=== PATIENT | female | born 1950 | race Caucasian/White ===

== ENCOUNTER 2020-01-29 11:17 | Outpatient (CLI) | payer MEDICARE, SELFPAY ==
--- NOTE | 2020-01-29 11:20 | MM_ITS ---
WS: [id number] Bilateral screening digital mammogram, 01/29/2020 Clinical Data: SCREENING Comparison: 12/17/2018, 12/31/2010, 10/14/2009, 09/19/2008, 07/04/2007. Findings: The breast parenchymal pattern shows heterogeneous density No spiculated masses or clustered calcific ations are seen. There are no secondary signs of carcinoma. MM/[id number] Impression: 1. Negative bilateral mammogram unchanged. 2. Recommend annual screening mammograms. BIRADS: 1-Negative FOLLOW UP: 1 Year Follow-up The CAD radio program checker was used.
== END 2020-01-29 11:18 | disposition home or self-care (01) ==
LOC: RADSHAW 11:17
PROVIDERS: Family Provider Family Medicine; PCP Family Medicine; Visit Provider Family Medicine
DX: Z12.31 Encounter for screening mammogram for malignant neoplasm of breast (principal)
CPT/HCPCS: 77067

== ENCOUNTER 2020-11-23 10:56 | Emergency (ER) | payer MEDICARE, SELFPAY ==
[2020-11-23 10:58] VITALS: BP 120/68; PULSE 76; RESP 16; TEMP 36.4; O2SAT 98; BMI 19.3
--- NOTE | 2020-11-23 11:28 | CT_ITS ---
WS: [id number] CT LUMBAR SPINE TECHNIQUE: Noncontrast CT of the lumbar spine with coronal and sagittal reformatted images. CLINICAL INFORMATION: back pain COMPARISON: None. DLP: 1777.[address] scans at [facility] use at least one of these dose optimization techniques: automat ed exposure control; mA and/or kV adjustment per patient size (includes targeted exams where dose is matched to clinical indication); or iterative reconstruction. FINDINGS: Mild left lumbar curve. No acute compression. No high-grade central canal stenosis. L1-L2: Normal. L2-L3: Moderate facet arthropathy. Spinal canal and foramen are patent. L3-L4: Minimal annular bulging. Moderate facet arthropathy. Spinal canal and foramen are patent. L4-L5: Mild annular bulging with slight impingement traversing L5 nerve roots in the subarticular rec ess. Mild central canal stenosis. Foramen are patent. Moderate facet arthropathy. L5-S1: Tiny shallow central disc protrusion. Slight effacement of ventral thecal sac. Spinal canal an d foramen are patent. Mild facet arthropathy. Visualized pelvic bony structures: Normal. Paravertebral soft tissues: Normal. CT/CT lumbar spine wo con* [id number] IMPRESSION: 1. Mild lumbar curve. No acute compression. No high-grade central canal stenos is. 2. Annular bulging with L4-5 with slight impingement on the traversing L5 nerv e roots bilaterally. Foramen are patent.Correlation L5 nerve root symptoms. 3. Moderate facet arthropathy L2-L5. 4. Tiny central disc protrusion L5-S1 with slight effacement of the ventral th ecal sac.
--- NOTE | 2020-11-23 11:40 | ED_ITS ---
HPI - Back Pain/Injury General: Chief Complaint: Back Pain/Injury Stated Complaint: BACK PAIN, NAUSEA, DIZZY Time Seen by Provider: 11/23/20 11:00 History of Present Illness: HPI Narrative: 70-year-old female presents emergency room complaining of back pain. She had back problems in the past she thinks that 2 days ago when she dragged a ladder into her house it seemed to trigger it last night evidently she was going to the bathroom began having severe back pain and lowered herself to the floor. She denies any trauma. States she did not actually fall she is lowered her self down. She was on the floor for about 5 to 6 hours until she was able to call the ambulance. She did void while she was laying on the floor this was voluntary. No chest pain no shortness of breath no vomiting or diarrhea. MD elicited complaint: back pain Pertinent past history: prior back pain Onset (ago): hour(s) Timing: intermittent Severity: severe Similar Symptoms Previously: Yes Quality: sharp, stabbing and spasming Location: lumbar spine Radiation: none Exacerbating factors: movement, sitting upright and walking Relieving factors: supine Context: while lifting (Began 2 days ago) Associated symptoms: Deny abdominal pain, arthralgias, chills, change in bowel habits, difficulty walking, dysuria, fatigue, fecal incontinence, fever(s), hematuria, myalgias, nausea, numbness, syncope, tingling/numbness/burning, urinary frequency, urinary urgency, vomiting or weakness Treatments prior to arrival: cold therapy, heat therapy, NSAIDS, acetaminophen, ASA, other medications and prescription analgesics Work related injury: No Review of Systems Const: Denies: fever(s), chills or fatigue ENMT: Denies: throat pain, ear or mastoid pain, nasal discharge or nasal congestion Card: Denies: syncope Resp: Denies: dyspnea, productive cough or non-productive cough GI: Denies: abdominal pain, nausea, vomiting, fecal incontinence or change in bowel habits : Denies: urinary urgency or hematuria Skin/Breast: Denies: rash or pruritus Neuro: Denies: difficulty walking PFS ED PFSH: Medical History Dyspareunia Lactose intolerance Menopausal vasomotor syndrome Surgical History H/O dilation and curettage (~1963) Hx of hysterectomy, total (~1995) GERI, BSO Family History Father Heart disease Mother Heart disease Family/Other Breast cancer Maternal aunt Grandmother Colon cancer Maternal grandmother Denies family history of Diabetes CAD (coronary artery disease) Clotting disorder Dementia Hyperlipidemia Psychiatric illness Chronic kidney disease (CKD) Suicide Anesthesia complication Bleeding disorder Family history of premature coronary artery disease Lung disease Hypertension Stroke Social History Smoking and tobacco status: never smoked Alcohol intake: never Current occupational status: retired Physical Exam Const: COMMON NORMALS: no acute distress GENERAL APPEARANCE: cooperative and comfortable ORIENTATION/CONSCIOUSNESS: Yes awake, Yes oriented to person, Yes oriented to place and Yes oriented to time HENMT: COMMON NORMALS: normocephalic, atraumatic and hearing grossly normal bilaterally HEAD & SCALP: normocephalic and atraumatic Eye: COMMON NORMALS: Equal, round and reactive pupils present, EOMs intact bilaterally, conjunctivae normal and no scleral icterus CONJUNCTIVA: Yes conjunctivae normal PUPIL: Yes Equal, round and reactive pupils present Neck/C-Spine: COMMON NORMALS: full ROM, no lymphadenopathy, supple and no JVD Lymph: LYMPHATIC: no lymphadenopathy noted and no lymphedema noted Resp: COMMON NORMALS: normal respiratory effort, No retractions, No use of accessory muscles and clear to auscultation bilaterally AUSCULTATION: clear to auscultation bilaterally Cardio: COMMON NORMALS: no JVD, regular rate, regular rhythm and No murmurs present (Cardio) RATE: regular rate RHYTHM: regular rhythm GI: COMMON NORMALS: Soft to palpation and No hepatosplenomegaly present AUSCULTATION: Yes normoactive bowel sounds PALPATION: Yes Soft to palpation, No Tenderness to palpation present (GI), No Guarding due to palpation present (GI) and Yes No hepatosplenomegaly present Back/Pelvis: OTHER: Deep tendon reflexes +2 from lower extremities sensation normal straight leg raising equivocal Extremity: COMMON NORMALS: normal to inspection, capillary refill normal, no clubbing, cyanosis or edema, no calf tenderness and no pedal edema Neuro: SENSORIUM/ORIENTATION: Yes oriented to person, Yes oriented to place and Yes oriented to time Skin: COMMON NORMALS: no rashes or lesions noted GENERAL SKIN EXAM: no rashes or lesions noted Course Vital Signs: Vital signs: Vital Signs Temperature 97.6 F 11/23/20 10:58 Pulse Rate 95 11/23/20 14:34 Respiratory Rate 16 11/23/20 14:34 Blood Pressure 107/55 11/23/20 14:34 Pulse Oximetry 99 11/23/20 14:34 MDM - Back Pain/Injury MDM Narrative: Medical decision making narrative: After meds patient able to ambulate in the room physical therapy reviewed strategies with her we will go ahead discharge home with hydrocodone Medrol Dosepak tizanidine she can also use anti-inflammatories. Follow-up with your primary care doctor if persists may need further advanced imaging such an MRI on the CT there is a question of L4-5 nerve root impingement Lab Data: Labs: Lab Results 11/23/20 11/23/20 11/23/20 Range/Units 11:39 11:46 11:46 WBC 7.9 (4.0-10.0) 10^3/ uL RBC 4.25 (4.1-5.3) 10^6/u L Hgb 13.1 (11.5-15.3) g/dL Hct 40.1 (37.0-47.0) % MCV 94.4 (81-99) fL MCH 30.8 (28.0-34.0) pg MCHC 32.7 (30.0-36.0) g/dL RDW 12.0 L (12.1-15.1) % Plt Count 182 (130-400) 10^3/c mm MPV 10.3 (7.4-10.4) fL Neut % (Auto) 74.6 % Lymph % (Auto) 18.7 % [place] % (Auto) 6.1 % Eos % (Auto) 0.1 % Baso % (Auto) 0.4 % Neut # (Auto) 5.88 (1.8-7.7) 10^3/u L Lymph # (Auto) 1.5 (0.8-4.8) 10^3/u L [place] # (Auto) 0.5 (0.2-0.9) 10^3/u L Eos # (Auto) 0.0 (0.0-0.8) 10^3/u L Baso # (Auto) 0.0 (0.0-0.1) 10^3/u L Nucleated RBC % (a uto) 0 % Nucleated RBCs # 0.0 /100WBC Sodium 140 (136-145) mmol/L Potassium 3.3 L (3.5-5.1) mmol/L Chloride 104 (98-107) mmol/L Carbon Dioxide 28 (22-29) mmol/L Anion Gap 11.3 (5-19) BUN 18 (8-23) mg/dL Creatinine 0.5 (0.5-0.9) mg/dL GFR Calculation 122.3 (90-130) mL/min Glucose 110 (65-115) mg/dL Calculated Osmolal ity 293 (285-295) mOsm/k g Calcium 9.1 (8.5-10.5) mg/dL Total Bilirubin 1.4 H (0.15-1.2) mg/dL AST 32 (0-32) U/L ALT 22 (0-33) U/L Alkaline Phosphata se 67 (35-105) IU/L Creatine Kinase 266 H (26-192) U/L Total Protein 7.0 (6.6-8.7) g/dL Albumin 4.2 (3.5-5.2) g/dL Globulin 2.8 (1.3-4.6) g/dL Urine Color Straw (Yellow) Urine Appearance Clear (CLEAR) Urine pH 9 H (5-7) Ur Specific Gravit y 1.015 (1.005-1.030) Urine Protein Neg (Negative) Urine Glucose (UA) Norm (Normal) Urine Ketones Negative (Negative) Urine Blood Neg (Negative) Urine Nitrate Negative (Negative) Urine Bilirubin Neg (Negative) Prot Sulfosalicyli c Acd Negative (Negative) Urine Urobilinogen Norm (Negative) mg/dL Ur Leukocyte Alba ase Negative (Negative) Discharge Plan Discharge Patient Disposition: Home Clinical Impression: Strain of lumbar region Condition: Stable Prescriptions: New hydrocodone-acetaminophen 5-325 mg tablet 1 tab PO Q6H PRN (Reason: pain) Qty: 20 RF: 0 Medrol (Andry) 4 mg tablets,dose pack See Rx Instructions .ROUTE .COMPLEX Qty: 21 RF: 0 tizanidine 4 mg capsule 4 mg PO Q8H PRN (Reason: muscle spasticity) Qty: 20 RF: 0 No Action conjugated estrogens 0.625 mg/gram cream 0.3125 mg vaginal .twice/week Qty: 30 RF: 3 multivitamin Tablet 1 tab PO DAILY@1100 RF: 0 calcium citrate-vitamin D3 200 mg calcium -250 unit tablet 1 tab PO DAILY@1100 RF: 0 ascorbic acid (vitamin C) 500 mg tablet 500 mg PO DAILY@1100 RF: 0 vitamin E (dl, acetate) 400 unit capsule 400 unit PO DAILY@1100 RF: 0 magnesium oxide 400 mg magnesium capsule 400 mg PO DAILY@1100 RF: 0 estradiol 0.5 mg tablet 0.5 mg PO DAILY@1100 RF: 0 Advil 200 mg Tablet 200 mg PO Q6H PRN (Reason: Pain) RF: 0 Discharge Orders: Discharge ED (Routine); Ordered 11/23/20 Ordered By: Ariel Harrington Referrals: Nirali Lan MD [Primary Care Provider] - Discharge Diet: Usual diet Discharge Activity: Limit activity as instructed Patient Instructions: Acute Low Back Pain (ED) Activity Restrictions/Additional Instructions: Avoid bending and stooping no lifting greater than 5 to 10 pounds. Follow-up with your doctor within the next week. Return if you have further problems. Coding Level of Care Code ED Dry Kiln Burner for Ruby Fwd Exam Comprehensive
[2020-11-23] MEDS: orphenadrine 30 mg/mL Inj 2 mL 60 MG IVP (11:48)
[2020-11-23] MEDS: ketorolac 30 mg/mL INJ IVP (11:48)
[2020-11-23 11:59] LABS: Basophils % 0.4 %; Eosinophils % 0.1 %; Hematocrit 40.1 % (37.0-47.0); Hemoglobin 13.1 g/dL (11.5-15.3); Lymphocytes # 1.5 10^3/uL (0.8-4.8); Lymphocytes % 18.7 %; Mean Corpuscular HGB Conc 32.7 g/dL (30.0-36.0); Mean Corpuscular Hemoglobin 30.8 pg (28.0-34.0); Mean Corpuscular Volume 94.4 fL (81-99); Mean Platelet Volume 10.3 fL (7.4-10.4); Monocytes # 0.5 10^3/uL (0.2-0.9); Monocytes % 6.1 %; Neutrophils # 5.88 10^3/uL (1.8-7.7); Neutrophils % 74.6 %; Nucleated Red Blood Cells % 0 %; Platelet Count 182 10^3/cmm (130-400); Red Blood Count 4.25 10^6/uL (4.1-5.3); White Blood Count 7.9 10^3/uL (4.0-10.0)
[2020-11-23 12:08] LABS: Add Urine Microscopic? NO
[2020-11-23 12:14] LABS: Bilirubin Urine Neg (Negative); Blood Urine Neg (Negative); Glucose Urine UA Norm (Normal); Ketones Urine Negative (Negative); Leukocyte Esterase Urine Negative (Negative); Nitrate Urine Negative (Negative); Protein Urine Neg (Negative); Specific Gravity, Urine 1.015 (1.005-1.030); Sulfosalicylic Acid Urine Negative (Negative); Urine Appearance Clear (CLEAR); Urine Color Straw (Yellow); Urobilinogen Urine Norm (Negative); pH Urine 9 (5-7)
[2020-11-23] MEDS: sodium chloride 0.9% 1,000 ML 999 ML IV (12:18)
[2020-11-23 12:22] LABS: Alanine Aminotransferase 22 U/L (0-33); Albumin Level 4.2 g/dL (3.5-5.2); Alkaline Phosphatase 67 IU/L (35-105); Aspartate Amino Transferase 32 U/L (0-32); Blood Urea Nitrogen 18 mg/dL (8-23); Calcium 9.1 mg/dL (8.5-10.5); Carbon Dioxide 28 mmol/L (22-29); Chloride 104 mmol/L (98-107); Creatine Phosphokinase 266 U/L (26-192); Globulin 2.8 g/dL (1.3-4.6); Glomerular Filtration Rate 122.3 mL/min (90-130); Glucose 110 mg/dL (65-115); Osmolality Calculated 293 mOsm/kg (285-295); Sodium 140 mmol/L (136-145); Total Bilirubin 1.4 mg/dL (0.15-1.2)
[2020-11-23 12:27] LABS: Anion Gap 11.3 (5-19); Potassium 3.3 mmol/L (3.5-5.1)
[2020-11-23 14:34] VITALS: BP 107/55; PULSE 95; RESP 16; O2SAT 99
--- NOTE | 2020-11-23 16:05 | PC.NURSE ---
Read and agree with assessment.
== END 2020-11-23 14:35 | disposition home or self-care (01) ==
PROVIDERS: Emergency Provider Family Medicine; PCP Family Medicine
DX: S39.012A Strain of muscle, fascia and tendon of lower back, initial encounter (principal); X50.9XXA Other and unspecified overexertion or strenuous movements or postures, initial encounter
CPT/HCPCS: 12345; 72131; 80053; 81003; 82550; 85025; 96361; 96374; 96375; 97161; 99282; 99283; J1885; J2360; J7030

== ENCOUNTER 2021-03-08 14:53 | Outpatient (CLI) | payer MEDICARE, SELFPAY ==
--- NOTE | 2021-03-08 14:59 | MM_ITS ---
WS: [id number] BILATERAL SCREENING DIGITAL MAMMOGRAM WITH CAD HISTORY: SCREENING COMPARISON: 01/29/2020, 12/17/2018, 07/04/2007 Bilateral CC and MLO views submitted. Computer aided detection analyzed. Breast composition: The breasts are extremely dense, which lowers the sensitivity of mammography. No suspicious masses, microcalcifications or architectural distortion. Very dense fibroglandular densiti es throughout the breast. Benign calcifications. Mild soft tissue thickening in the anterior RIGHT br east around the nipple. Similar findings were seen on the study from 2008 and 2006. MM/[id number] IMPRESSION: BI-RADS: 2-Benign FOLLOW UP: 1 Year Follow-up
== END 2021-03-08 14:54 | disposition home or self-care (01) ==
LOC: RADSHAW 14:56
PROVIDERS: PCP Family Medicine; Visit Provider Family Medicine
DX: Z12.31 Encounter for screening mammogram for malignant neoplasm of breast (principal)
CPT/HCPCS: 77067

== ENCOUNTER 2021-04-01 13:56 | Outpatient (CLI) | payer MEDICARE, SELFPAY ==
--- NOTE | 2021-04-01 14:14 | XR_ITS ---
WS: [id number] Bone mineral density performed on a Aptela IDXA, 04/01/2021 Clinical data: Z13.820 - Encounter for screening for osteoporosis Comparison study: DEXA scan, 12/17/2018. Findings: The first 4 lumbar vertebral bodies demonstrated the bone mineral density of 1.244 g/cm2 for a young adult T score of 0.5. Measurement of the left hip reveals a bone mineral density of 0.915 g/cm2 with a young adult T score of -0.7. Measurement of the right hip reveals the bone mineral density of 0.876 g/cm2 for young adult T score of -1.0. XR/XR DEXA axial skeleton* [id number] Impression: 1. Normal bone mineral density of the lumbar spine with a slight increase in th e bone mineral density compared to the previous study. 2. Normal bone mineral density of the left hip with a slight decrease in bone m ineral density compared to the prior study. Normal bone mineral density of the right hip with slight decrease in bone legal examiner al density compared to the prior study.
== END 2021-04-01 13:57 | disposition home or self-care (01) ==
LOC: RADWPI 14:02
PROVIDERS: PCP Family Medicine; Visit Provider Nurse Practitioner Women's Health
DX: Z13.820 Encounter for screening for osteoporosis (principal); Z78.0 Asymptomatic menopausal state
CPT/HCPCS: 77080

== ENCOUNTER 2022-03-24 10:39 | Emergency (ER) | payer MEDICARE, SELFPAY ==
[2022-03-24] VITALS (10 sets, daily range): BP systolic 80–123; BP diastolic 46–69; PULSE 63–86; RESP 22–24; TEMP 36.7; O2SAT 98–99; BMI 19.5
--- NOTE | 2022-03-24 10:48 | W.ED.CHESTPA ---
HPI - Chest Pain General: Chief Complaint: Back Pain/Injury Stated Complaint: BRADYCARDIA Time Seen by Provider: 03/24/22 10:48 History of Present Illness: Ms. Mauro is a 71-year-old lady who presents to the emergency department due to back pain with concern for bradycardic episode. She reports longstanding history of back pain related to lifting injury approximately 30 years ago. Typically she does stretches which moderately control her symptoms however due to various factors she missed a few days of stretching and when she went back to stretching she began having worse pain. She went to a massage therapist/physical therapist who noted bruising on her low back and recommended that she present to the emergency department. The patient additionally endorsed an episode today where she had syncope associated with severe pain. She reports history of frequent/relatively frequent similar episodes in the past where she becomes bradycardic due to pain and has near syncope. EMS did find the patient to be bradycardic and administered atropine with improvement. Intensity of symptoms is moderate however does become severe with movement. She denies associated numbness, saddle anesthesia, loss of bowel or bladder control, any weakness of lower extremities other than limitations secondary to pain. She has tried home medications without significant relief. No other specific changes in health, exacerbating, or alleviating factors identified. Onset (ago): day(s) Timing of current episode: constant Prior episodes: Yes Severity: moderate Quality: aching and sharp Exacerbating factors: movement Review of Systems General: Reports: 10 or more systems reviewed and unremarkable except in HPI and below PFSH ED PFSH: Medical History Dyspareunia Lactose intolerance Menopausal vasomotor syndrome No pertinent past medical history neghx: htn,dm,thyroid,dvt/pe PCP: Dr. Lan Surgical History H/O dilation and curettage (~1963) Hx of hysterectomy, total (~1995) GERI, BSO Family History Father Heart disease Mother Heart disease Stroke Family/Other Breast cancer Maternal aunt-- dx age 70's Grandmother Colon cancer Maternal--dx age 70's Denies family history of Ovarian cancer Diabetes Hyperlipidemia Hypertension Uterine cancer Physical Exam Const: COMMON NORMALS: alert GENERAL APPEARANCE: cooperative, well developed and in distress (Uncomfortable appearing due to pain) HENMT: COMMON NORMALS: normocephalic and atraumatic HEAD & SCALP: normocephalic and atraumatic Eye: COMMON NORMALS: conjunctivae normal CONJUNCTIVA: Yes conjunctivae normal SCLERA: sclerae normal Neck/C-Spine: COMMON NORMALS: supple GENERAL: Yes trachea midline Resp: COMMON NORMALS: clear to auscultation bilaterally EFFORT & INSPECTION: Yes able to speak in complete sentences AUSCULTATION: clear to auscultation bilaterally Cardio: COMMON NORMALS: regular rate and regular rhythm RATE: regular rate RHYTHM: regular rhythm GI: COMMON NORMALS: Soft to palpation PALPATION: Yes Soft to palpation and No Tenderness to palpation present (GI) PERCUSSION: normal to percussion Back/Pelvis: OTHER: Paraspinal tenderness palpation Extremity: GENERAL: Yes normal exam except as noted and No edema Neuro: COMMON NORMALS: moves all extremities SENSORIUM/ORIENTATION: Yes alert and No Orientation impaired Psych: COMMON NORMALS: mental status grossly normal and Normal thought process present THOUGHT PROCESS: Normal thought process present Skin: NARRATIVE SKIN EXAM: Perhaps minimal discoloration in the low back region consistent with minimal bruising or subcutaneous hemorrhage that tracked along the skin. Course ED course: - Patient was seen and evaluated by me at bedside - Patient placed on cardiac monitors, IV access obtained - Initial evaluation notable for exam as above - Labs personally interpreted by me. EKG was reviewed showing sinus rhythm with no STEMI. - Analgesia given. I discussed possible analgesia options. The patient expressed significant reluctance regarding any strong pain medications as she reports adverse reaction to codeine in the past. As such I ordered Robaxin, Tylenol, Toradol. - Labs notable for no significant metabolic or hematologic abnormality contributing to patient's symptoms. - Upon serial reexamination after treatment the patient was mildly improved. She was mildly orthostatic and IV fluids given. - Based on patient history, evaluation, and testing as interpreted the most likely cause of the patient's condition is acute on chronic back pain - The results of ED evaluation were discussed with the patient including prescriptions and/or symptomatic cares (if applicable) including appropriate and responsible use, followup plan, and return precautions. The patient verbalized understanding and felt safe for discharge. - After discussion with the patient I was subsequently called back to room by nursing staff as apparently the patient expressed dissatisfaction with her level of pain control. I was somewhat surprised by the patient's feelings as I had offered on reassessment additional analgesia though did discuss risks and benefits of additional medications. This is a challenging situation as the patient expressed significant hesitance to try new medications including stronger medications. I would have been happy to order these earlier during her care however she was very reluctant to try them and I did not want to make her uncomfortable with treatment plan or over sedated. I ordered a morphine IM injection which the patient reportedly had improvement from. Overall patient's pain and syncope appear consistent with clinical history and longstanding history of similar without new or acute changes that would be red flags. - Patient discharged in satisfactory condition. Note: Click bubbles or prepopulated jaime in note writing are used for assistance with data collection and billing and are inherently more limited than narrative and other text portions of this note. Please use narrative for additional clinical history and defer to narrative/free test for any case of contradictory information. If information appears in only free text or click bubble it should be considered present or absent as reported. Please contact note junior copywriter for clarifications of clinical information or contradictory information. MDM is a brief summary, contradictory or erroneous seeming information should be clarified and full note should be reviewed. Vital Signs: Vital signs: Vital Signs Temperature 98.0 F 03/24/22 10:42 Pulse Rate 68 03/24/22 17:17 Respiratory Rate 22 H 03/24/22 13:30 Blood Pressure 113/63 03/24/22 17:17 Pulse Oximetry 99 03/24/22 17:17 MDM - Chest Pain Medical Decision Making 71-year-old lady with longstanding history of back pain presenting to the emergency department due to acute on chronic back pain and an episode of bradycardic syncope which she has also had in the past associated with episodes of severe pain. Laboratory studies negative for acute abnormality to explain symptoms. Satisfactory for outpatient management. Medical Records I reviewed the patient's medical records. Lab Data I reviewed the patient's lab results. : 03/24/22 10:20 03/24/22 11:35 Laboratory Results WBC 7.2 10^3/uL (4.0-10.0) 03/24/22 10:20 RBC 4.52 10^6/uL (4.1-5.3) 03/24/22 10:20 Hgb 14.1 g/dL (11.5-15.3) 03/24/22 10:20 Hct 41.9 % (37.0-47.0) 03/24/22 10:20 MCV 92.7 fl (81-99) 03/24/22 10:20 MCH 31.2 pg (28.0-34.0) 03/24/22 10:20 MCHC 33.7 g/dL (30.0-36.0) 03/24/22 10:20 RDW 11.9 % (12.1-15.1) L 03/24/22 10:20 Plt Count 207 10^3/cmm (130-400) 03/24/22 10:20 MPV 10.5 fL (7.4-10.4) H 03/24/22 10:20 Neut % (Auto) 66.4 % 03/24/22 10:20 Lymph % (Auto) 25.7 % 03/24/22 10:20 [place] % (Auto) 7.2 % 03/24/22 10:20 Eos % (Auto) 0.1 % 03/24/22 10:20 Baso % (Auto) 0.3 % 03/24/22 10:20 Neut # (Auto) 4.80 10^3/uL (1.8-7.7) 03/24/22 10:20 Lymph # (Auto) 1.9 10^3/uL (0.8-4.8) 03/24/22 10:20 [place] # (Auto) 0.5 10^3/uL (0.2-0.9) 03/24/22 10:20 Eos # (Auto) 0.0 10^3/uL (0.0-0.8) 03/24/22 10:20 Baso # (Auto) 0.0 10^3/uL (0.0-0.1) 03/24/22 10:20 Nucleated RBC % (auto) 0 % 03/24/22 10:20 Nucleated RBCs # 0.0 /100WBC 03/24/22 10:20 Sodium 141 mmol/L (136-145) 03/24/22 11:35 Potassium 3.8 mmol/L (3.5-5.1) 03/24/22 11:35 Chloride 106 mmol/L (98-107) 03/24/22 11:35 Carbon Dioxide 24 mmol/L (22-29) 03/24/22 11:35 Anion Gap 14.8 (5-19) 03/24/22 11:35 BUN 15 mg/dL (8-23) 03/24/22 11:35 Creatinine 0.6 mg/dL (0.5-0.9) 03/24/22 11:35 GFR Calculation 98.8 mL/min (90-130) 03/24/22 11:35 Glucose 126 mg/dL (65-115) H 03/24/22 11:35 Calculated Osmolality 294 mOsm/kg (285-295) 03/24/22 11:35 Calcium 9.3 mg/dL (8.5-10.5) 03/24/22 11:35 Magnesium 2.0 mg/dL (1.7-2.3) 03/24/22 11:35 Total Bilirubin 1.2 mg/dL (0.15-1.2) 03/24/22 11:35 AST 32 U/L (0-32) 03/24/22 11:35 ALT 17 U/L (0-33) 03/24/22 11:35 Alkaline Phosphatase 63 IU/L (35-105) 03/24/22 11:35 Troponin T Baseline 7 ng/L (0-10) 03/24/22 11:35 Troponin T 120 Minute 7.60 ng/L (0-10) 03/24/22 13:22 Delta Troponin T 0.6 ABS# (0-10) 03/24/22 13:22 NT-Pro-B Natriuret Pep 545 pg/mL (0-125) H 03/24/22 11:35 Total Protein 7.1 g/dL (6.6-8.7) 03/24/22 11:35 Albumin 4.2 g/dL (3.5-5.2) 03/24/22 11:35 Globulin 2.9 g/dL (1.3-4.6) 03/24/22 11:35 Discharge Plan Discharge Patient Disposition: Home Clinical Impression: Chronic back pain, Dehydration, Vasovagal syncope Condition: Stable Prescriptions: New methocarbamol 750 mg tablet 750 mg PO TID PRN (Reason: back pain) Qty: 20 0RF No Action estradiol 0.5 mg tablet 0.5 mg PO DAILY Qty: 90 3RF multivitamin Tablet 1 tab PO DAILY@1100 0RF calcium citrate-vitamin D3 200 mg calcium -250 unit tablet 1 tab PO DAILY@1100 0RF ascorbic acid (vitamin C) 500 mg tablet 500 mg PO DAILY@1100 0RF vitamin E (dl, acetate) 400 unit capsule 400 unit PO DAILY@1100 0RF magnesium oxide 400 mg magnesium capsule 400 mg PO DAILY@1100 0RF Discharge Orders: Discharge ED (Routine); Ordered 03/24/22 Ordered By: Wallace Rondon Referrals: Nirali Lan MD [Primary Care Provider] - Discharge Diet: Usual diet Discharge Activity: Increase activity as tolerated Patient Instructions: Dehydration (ED), Syncope (ED), Chronic Back Pain (DC) Activity Restrictions/Additional Instructions: Thank you for visiting the emergency department. You were seen and evaluated for slow heart rate associated with syncope and worsening back pain. The exact cause of your symptoms is unclear. As discussed the most likely causes pain related vasovagal response. You were found to be dehydrated. Please ensure that you are staying hydrated. Please follow-up with your primary care provider. I will place a case management request for follow-up with pain management. Return to the emergency department for worsening symptoms, any numbness in the groin area or inner thighs, loss of control of bowel or bladder, new weakness, or anything else that you are concerned about a feel needs emergency department evaluation. Coding Level of Care Code ED Vice President Sales And Marketing for Ruby Guevara
--- NOTE | 2022-03-24 11:06 | ECG_ITS ---
[facility] Test Date: 2022-03-24 Pat Name: Jayne Mauro Department: Room: Gender: Female Dishcloth Folder: : 1950 Requested By: Wallace Rondon Order Number: [id number] Bib MD: Ej Barrera M.D. Measurements Intervals [place] Rate: 84 P: 86 NH: 148 QRS: 73 QRSD: 97 T: 73 QT: 373 QTc: 441 Interpretive Statements SINUS RHYTHM POSSIBLE LEFT ATRIAL ENLARGEMENT [-0.1mV P-WAVE IN V1/V2] POSSIBLE RIGHT VENTRICULAR CONDUCTION DELAY [RSR (QR) IN V1/V2] INTERPRETATION BASED ON A DEFAULT AGE OF 40 YEARS No previous ECG available for comparison Electronically Signed On 03-24-2022 23:58:29 CDT by Ej Barrera M.D. [email or web address] Dublinreg[email or web address].SayNow/store/[id number] f
[2022-03-24] MEDS: methocarbamol 750 mg Tablet PO (11:28)
[2022-03-24] MEDS: ketorolac 30 mg/mL INJ 15 MG IVP (11:28)
[2022-03-24] MEDS: acetaminophen 500 mg Tablet 1000 MG PO (11:28)
[2022-03-24 11:31] LABS: Basophils % 0.3 %; Eosinophils % 0.1 %; Hematocrit 41.9 % (37.0-47.0); Hemoglobin 14.1 g/dL (11.5-15.3); Lymphocytes # 1.9 10^3/uL (0.8-4.8); Lymphocytes % 25.7 %; Mean Corpuscular HGB Conc 33.7 g/dL (30.0-36.0); Mean Corpuscular Hemoglobin 31.2 pg (28.0-34.0); Mean Corpuscular Volume 92.7 fl (81-99); Mean Platelet Volume 10.5 fL (7.4-10.4); Monocytes # 0.5 10^3/uL (0.2-0.9); Monocytes % 7.2 %; Neutrophils % 66.4 %; Nucleated Red Blood Cells % 0 %; Platelet Count 207 10^3/cmm (130-400); Red Blood Count 4.52 10^6/uL (4.1-5.3); Red Cell Distribution Width 11.9 % (12.1-15.1); White Blood Count 7.2 10^3/uL (4.0-10.0)
[2022-03-24 11:57] LABS: Troponin(5th) Baseline 7 ng/L (0-10)
[2022-03-24 12:04] LABS: Alanine Aminotransferase 17 U/L (0-33); Albumin Level 4.2 g/dL (3.5-5.2); Alkaline Phosphatase 63 IU/L (35-105); Anion Gap 14.8 (5-19); Aspartate Amino Transferase 32 U/L (0-32); Blood Urea Nitrogen 15 mg/dL (8-23); Calcium 9.3 mg/dL (8.5-10.5); Carbon Dioxide 24 mmol/L (22-29); Chloride 106 mmol/L (98-107); Globulin 2.9 g/dL (1.3-4.6); Glomerular Filtration Rate 98.8 mL/min (90-130); Glucose 126 mg/dL (65-115); NT Pro B Type Natriuretic Pept 545 pg/mL (0-125); Osmolality Calculated 294 mOsm/kg (285-295); Potassium 3.8 mmol/L (3.5-5.1); Sodium 141 mmol/L (136-145); Total Bilirubin 1.2 mg/dL (0.15-1.2); Total Protein 7.1 g/dL (6.6-8.7)
--- NOTE | 2022-03-24 13:06 | ECG_ITS ---
[facility] Test Date: 2022-03-24 Pat Name: Jayne Mauro Department: Room: Gender: Female Assistant Property Manager: : 1950 Requested By: Wallace Rondon Order Number: [id number] Bib MD: Ej Barrera M.D. Measurements Intervals [place] Rate: 63 P: 81 NC: 152 QRS: 67 QRSD: 88 T: 73 QT: 404 QTc: 415 Interpretive Statements SINUS RHYTHM POSSIBLE LEFT ATRIAL ENLARGEMENT [-0.1mV P-WAVE IN V1/V2] POSSIBLE RIGHT VENTRICULAR CONDUCTION DELAY [RSR (QR) IN V1/V2] No previous ECG available for comparison Electronically Signed On 03-25-2022 0:20:18 CDT by Ej Barrera M.D. [email or web address] county hospitalThinkHRlakehealth tripoint medical centerFlywheel Sports/store/[id number]
[2022-03-24 14:19] LABS: Troponin 5 2HR Delta 0.6 ABS# (0-10)
[2022-03-24] MEDS: morphine 4 mg/mL SDV 1 mL IM (16:48)
--- NOTE | 2022-03-25 09:35 | DCPLANNER ---
slots manager had message to make a follow up appointment for patient with pain management. slots manager can not make a referral to pain management from the ER. Pain management will only take referrals from patients primary care physician. slots manager called patient, and left a voicemail for patient, letting her know that a referral would need to come from her primary care physician. I also let patient know that if she had any questions that she could call transplant case manager.
== END 2022-03-24 17:19 | disposition home or self-care (01) ==
PROVIDERS: Emergency Provider Emergency Medicine; PCP Family Medicine
DX: M54.9 Dorsalgia, unspecified (principal); G89.29 Other chronic pain; E86.0 Dehydration; R55 Syncope and collapse
CPT/HCPCS: 36415; 80053; 83735; 83880; 84484; 85025; 93005; 96372; 96374; 99284; J1885; J2270

== ENCOUNTER 2022-07-14 11:53 | Outpatient (CLI) | payer MEDICARE, SELFPAY ==
--- NOTE | 2022-07-14 12:02 | MM_ITS ---
WS: [id number] BILATERAL SCREENING DIGITAL TOMOSYNTHESIS MAMMOGRAM WITH CAD HISTORY: Screening. COMPARISON: 03/08/2021 and 01/29/2020 Bilateral CC and MLO views with tomosynthesis and synthetic mammography submitted. Computer aided det ection analyzed. Breast composition: The breasts are extremely dense, which lowers the sensitivity of mammography. No suspicious masses, microcalcifications or architectural distortion. Benign calcifications. The asymme tries are unchanged. MM/[place] [id number] IMPRESSION: BI-RADS: 2-Benign FOLLOW UP: 1 Year Follow-up
== END 2022-07-14 11:54 | disposition home or self-care (01) ==
LOC: RAD 11:54
PROVIDERS: PCP Family Medicine; Visit Provider Nurse Practitioner Women's Health
DX: Z12.31 Encounter for screening mammogram for malignant neoplasm of breast (principal)
CPT/HCPCS: 77063; 77067

== ENCOUNTER → 2023-02-16 16:22 | Outpatient (BNVA) | payer MEDICARE, SELFPAY | PROVIDERS: PCP Family Medicine; Visit Provider Nurse Practitioner Women's Health | DX: R30.0 Dysuria (principal) | CPT/HCPCS: 84315; 87077; 87086; 87184 ==

== ENCOUNTER 2023-10-26 13:07 | Outpatient (CLI) | payer MEDICARE, SELFPAY ==
--- NOTE | 2023-10-26 13:20 | MM_ITS ---
WS: [email or web address] VIEWS: MLO and CC views both breasts. 3D digital tomosynthesis is also included in this exam. Comparison made with prior exam of 07/04/2007, 09/19/2008, 10/14/2029, 12/31/2010, 12/17/2018, 01/29/2020, , 07/14/2022.. Findings: There was no sign of mass, architectural distortion or suspicious calcification in either breast. The breasts are extremely dense which lowers the sensitivity of mammography. Impression: MM/[place] [id number] BI-RADS: 2-Benign finding FOLLOW-UP: 1 Year Follow-up This mammogram was also analyzed by the Computer Aided Detection System R2 Imag e Lead Warehouse Associate.
--- NOTE | 2023-10-26 14:00 | XR_ITS ---
WS: [email or web address] SCREENING DEXA SCAN [employer] CLINICAL INFORMATION: Z78.0 - Asymptomatic menopausal state COMPARISON: 2020 FINDINGS: The L1-L4 bone mineral density measures 1.242 g/cm2. This corresponds to a T score score of 0.5 and Z score of 2.6. Left femoral neck bone mineral density measures 0.936 g/cm2. This corresponds to a T score of -0.6 an d Z score of 1.3. Right femoral neck bone mineral density measures 0.895 g/cm2. This corresponds to a T score -0.9of an d Z score of 0.9. Mean femoral neck bone mineral density measures 0.916 g/cm2. This corresponds to a T score of -0.7 an d Z score of 1.1. IMPRESSION: Normal bone mineralization. Patient's FRAX calculated 10 year probability for major osteoporotic fracture is 11.1% and osteoporot ic hip fracture is 2.7%. Bone mineral density lumbar spine decreased -0.2% Bone mineral density femoral necks increased 2.2%
== END 2023-10-26 13:08 | disposition home or self-care (01) ==
LOC: RAD 13:07
PROVIDERS: PCP Family Medicine; Visit Provider Nurse Practitioner Women's Health
DX: Z12.31 Encounter for screening mammogram for malignant neoplasm of breast; Z13.820 Encounter for screening for osteoporosis; Z78.0 Asymptomatic menopausal state
CPT/HCPCS: 77063; 77067; 77080

== ENCOUNTER 2024-09-12 06:47 | Emergency (ER) | payer MEDICARE, SELFPAY ==
[2024-09-12 06:48] VITALS: BP 122/59; PULSE 87; RESP 16; TEMP 36.6; O2SAT 96; BMI 18.8
--- NOTE | 2024-09-12 06:51 | XRR_ITS ---
PROCEDURE INFORMATION: Exam: XR Chest Exam date and time: 09/12/2024 7:03 AM Age: 74 years old Clinical indication: Cough TECHNIQUE: Imaging protocol: Radiologic exam of the chest. Views: 1 view. COMPARISON: No relevant prior studies available. FINDINGS: Lungs: Mild chronic interstitial prominence. Pleural spaces: Unremarkable. No pleural effusion. No pneumothorax. Heart/Mediastinum: Unremarkable. No cardiomegaly. Bones/joints: Unremarkable. XR/XR chest 1V portable [id number] IMPRESSION: No acute findings.
--- NOTE | 2024-09-12 06:52 | ED_ITS ---
HPI - General Adult 2 General: Chief complaint: Upper Respiratory Infection Stated complaint: flu like symptoms Time Seen by Provider: 09/12/24 06:48 Source: patient Mode of arrival: ambulatory Limitations: no limitations History of Present Illness: 74-year-old female states she had flulik e illness over the last 2 to 3 days. States she has been having low-grade fevers cough body aches states this morning she is feeling weak and fell like she is going to pass out states she has had some nausea as well. Denies any vomiting or diarrhea Associated symptoms: Reports malaise and nausea; Deny chest pain, dyspnea, headache(s), rash or vomiting Related Data Home Medications Medication Instructions Recorded Confirmed ascorbic acid (vitamin C) 500 mg 500 mg PO DAILY@109912/17/19 09/12/24 tablet calcium 200 mg (as 1 tab PO DAILY@109912/17/19 09/12/24 citrate)-vitamin D3 6.25 mcg (250 unit) tablet magnesium oxide 400 mg PO DAILY@109912/17/19 09/12/24 multivitamin 1 tab PO DAILY@109912/17/19 09/12/24 vitamin E (dl, acetate) 180 mg 400 unit PO DAILY@109912/17/19 09/12/24 (400 unit) capsule latanoprost 0.005 % eye drops 1 drp ophthalmic (eye) DAILY 07/07/22 09/12/24 Previous Rx's Medication Instructions Recorded estradiol 0.5 mg tablet 0.5 mg PO DAILY #90 tabs 10/18/23 nirmatrelvir 300 mg (150 mg See Rx Instructions PO .COMPLEX 09/12/24 x2)-ritonavir 100 mg tablet,dose #30 ea pack (Paxlovid) Allergies Allergy/AdvReac Type Severity Reaction Status Date / Time codeine Allergy ADR-Faintin Verified 10/18/23 09:56 g penicillin G Allergy ADR-Faintin Verified 10/18/23 09:56 g Review of Systems 2 Const: Reports: fever(s), fatigue and malaise; Denies: chills, body aches or change in appetite Eyes: Denies: blurry vision or eye discomfort ENMT: Denies: throat pain or dental pain Card: Denies: chest pain Resp: Reports: non-productive cough; Denies: dyspnea GI: Reports: nausea; Denies: abdominal pain, vomiting or diarrhea Musc: Denies: neck pain or back pain Skin/Breast: Denies: rash Neuro: Denies: headache(s) PFSH ED 2 PFSH: Medical History No pertinent past medical history neghx: htn,dm,thyroid,dvt/pe PCP: Dr. Lan Menopausal vasomotor syndrome Dyspareunia Lactose intolerance Surgical History H/O dilation and curettage (~1963) Hx of hysterectomy, total (~1995) GERI, BSO Family History Father Heart disease Mother Heart disease Stroke Hypertension Family/Other Breast cancer Maternal aunt-- dx age 70's Grandmother Colon cancer Maternal--dx age 70's Denies family history of Ovarian cancer Diabetes Hyperlipidemia Uterine cancer Social History Substance/Drug Use: never Physical Exam 2 Const: COMMON NORMALS: no acute distress, patient oriented x3 and healthy appearing HENMT: COMMON NORMALS: normocephalic and atraumatic HEAD & SCALP: n ormocephalic and atraumatic Eye: COMMON NORMALS: Equal, round and reactive pupils present and EOMs intact bilaterally PUPIL: Yes Equal, round and reactive pupils present Neck/C-Spine: COMMON NORMALS: full ROM and supple Chest: COMMONS NORMALS: normal inspection of the chest and normal palpation of entire chest wall Resp: COMMON NORMALS: normal respiratory effort, No retractions, No use of accessory muscles and clear to auscultation bilaterally AUSCULTATION: clear to auscultation bilaterally Cardio: COMMON NORMALS: regular rate, regular rhythm and No murmurs present (Cardio) RATE: regular rate RHYTHM: regular rhythm GI: COMMON NORMALS: Normal to inspection, nondistended, normoactive bowel sounds present, Soft to palpation, non-tender and no masses PALPATION: Yes Soft to palpation Extremity: COMMON NORMALS: normal to inspection and full ROM Neuro: COMMON NORMALS: patient oriented x3, moves all extremities and no focal motor deficits Psych: COMMON NORMALS: mental status grossly normal, Normal thought process present and cooperative THOUGHT PROCESS: Normal thought process present Skin: COMMON NORMALS: no rashes or lesions noted and no wounds GENERAL SKIN EXAM: no rashes or lesions noted Course 2 Vital Signs: Vital signs: Vital Signs Temperature 97.8 F 09/12/24 06:48 Pulse Rate 87 09/12/24 06:48 Respiratory Rate 16 09/12/24 06:48 Blood Pressure 122/59 09/12/24 06:48 Pulse Oximetry 96 09/12/24 06:48 [facility] - General Adult Medical Decision Making Patient presents with cough congestion body aches did test positive for COVID he has no signs of pneumonia vitals here are stable will place on Paxil bid patient stable for discharge follow-up PCP return if worsening. Medical Records I reviewed the patient's medical records. Lab Data I reviewed the patient's lab results. 09/12/24 06:59 09/12/24 06:59 Radiology Impressions Chest X-Ray 09/12/24 06:51 IMPRESSION: No acute findings. Laboratory Results WBC 4.37 10^3/uL (3.29-11.43) 09/12/24 06:59 RBC 4.01 10^6/uL (3.85-5.65) 09/12/24 06:59 Hgb 12.30 g/dL (11.27-16.99) 09/12/24 06:59 Hct 36.6 % (36-47) 09/12/24 06:59 MCV 91.3 fl (85-98) 09/12/24 06:59 MCH 30.7 pg (27-33) 09/12/24 06:59 MCHC 33.6 g/dL (30-55) 09/12/24 06:59 RDW 12.2 % (12.1-15.1) 09/12/24 06:59 Plt Count 152 10^3/cmm (157-399) L 09/12/24 06:59 MPV 9.3 fL (7.4-10.4) 09/12/24 06:59 Neut % (Auto) 80.3 % 09/12/24 06:59 Lymph % (Auto) 8.0 % 09/12/24 06:59 [place] % (Auto) 11.0 % 09/12/24 06:59 Eos % (Auto) 0.2 % 09/12/24 06:59 Baso % (Auto) 0.5 % 09/12/24 06:59 Neut # (Auto) 3.51 10^3/uL (1.8-7.7) 09/12/24 06:59 Lymph # (Auto) 0.4 10^3/uL (0.8-4.8) L 09/12/24 06:59 [place] # (Auto) 0.5 10^3/uL (0.2-0.9) 09/12/24 06:59 Eos # (Auto) 0.0 10^3/uL (0.0-0.8) 09/12/24 06:59 Baso # (Auto) 0.0 10^3/uL (0.0-0.1) 09/12/24 06:59 Nucleated RBC % (auto) 0 % 09/12/24 06:59 Nucleated RBCs # 0.0 /100WBC 09/12/24 06:59 Sodium 137 mmol/L (136-145) 09/12/24 06:59 Potassium 3.6 mmol/L (3.5-5.1) 09/12/24 06:59 Chloride 101 mmol/L (98-107) 09/12/24 06:59 Carbon Dioxide 27 mmol/L (22-29) 09/12/24 06:59 Anion Gap 12.6 (5-19) 09/12/24 06:59 BUN 10 mg/dL (8-23) 09/12/24 06:59 Creatinine 0.6 mg/dL (0.5-0.9) 09/12/24 06:59 GFR Calculation Not Reportable 09/12/24 06:59 Glucose 126 mg/dL (65-115) H 09/12/24 06:59 Calculated Osmolality 285 mOsm/kg (285-295) 09/12/24 06:59 Calcium 8.3 mg/dL (8.5-10.5) L 09/12/24 06:59 Total Bilirubin 1.0 mg/dL (0.15-1.2) 09/12/24 06:59 AST 23 U/L (0-32) 09/12/24 06:59 ALT 14 U/L (0-33) 09/12/24 06:59 Alkaline Phosphatase 70 U/L (35-105) 09/12/24 06:59 Total Protein 6.7 g/dL (6.6-8.7) 09/12/24 06:59 Albumin 4.0 g/dL (3.5-5.2) 09/12/24 06:59 Globulin 2.7 g/dL (1.3-4.6) 09/12/24 06:59 Urine Color Yellow (Yellow) 09/12/24 07:36 Urine Appearance Clear (CLEAR) 09/12/24 07:36 Urine pH 8.5 (5-7) A 09/12/24 07:36 Ur Specific [place] 1.012 (1.005-1.030) 09/12/24 07:36 Urine Protein Negative (Negative) 09/12/24 07:36 Urine Glucose (UA) Negative (Normal) 09/12/24 07:36 Urine Ketones Negative (Negative) 09/12/24 07:36 Urine Blood Trace (Negative) A 09/12/24 07:36 Urine Nitrate Negative (Negative) 09/12/24 07:36 Urine Bilirubin Negative (Negative) 09/12/24 07:36 Urine Urobilinogen 0.2 mg/dL (Negative) 09/12/24 07:36 Ur Leukocyte Esterase Negative (Negative) 09/12/24 07:36 Urine RBC Rare /hpf (0-2) 09/12/24 07:36 Urine WBC None /hpf (0-5) 09/12/24 07:36 Ur Squamous Epith Cells 0-4 /hpf (0-5) H 09/12/24 07:36 Amorphous Sediment Trace /hpf 09/12/24 07:36 Urine Bacteria None /hpf (NONE) 09/12/24 07:36 Urine Mucus None /hpf 09/12/24 07:36 Coronavirus (PCR) Positive (Negative) A 09/12/24 07:10 Influenza A (PCR) Negative (Negative) 09/12/24 07:10 Influenza Type B (PCR) Negative (Negative) 09/12/24 07:10 RSV (PCR) Negative (Negative) 09/12/24 07:10 All radiology interpretation(s) finalized by discharge Discharge Plan Discharge Patient Disposition: Home Clinical Impression: COVID-19 Condition: Stable Prescriptions: New Paxlovid 300 mg (150 mg x 2)-100 mg tablets,dose pack See Rx Instructions .ROUTE .COMPLEX Qty: 30 0RF Rx Instructions: take TWO 150 mg tablets of nirmatrelvir with ONE 100 mg tablet of ritonavir twice daily for 5 days No Action multivitamin Tablet 1 tab PO DAILY@1100 calcium citrate-vitamin D3 200 mg calcium -250 unit tablet 1 tab PO DAILY@1100 ascorbic acid (vitamin C) 500 mg tablet 500 mg PO DAILY@1100 vitamin E (dl, acetate) 400 unit capsule 400 unit PO DAILY@1100 magnesium oxide 400 mg magnesium capsule 400 mg PO DAILY@1100 latanoprost 0.005 % drops 1 drp ophthalmic (eye) DAILY estradiol 0.5 mg tablet 0.5 mg PO DAILY Qty: 90 3RF Discharge Orders: Discharge ED (Routine); Ordered 09/12/24 Ordered By: Mary Francois Referrals: Nirali Lan MD [Primary Care Provider] - 4-7 days Discharge Diet: Advance as tolerated Discharge Activity: Resume usual activity Patient Instructions: COVID-19 (Coronavirus Disease 2019) (ED) Coding Level of Care Code ED Student Affairs Dean for Ruby Guevara
[2024-09-12] MEDS: ondansetron 2 mg/ML SDV 2 mL 4 MG IVP (07:05)
[2024-09-12] MEDS: sodium chloride 0.9% 1,000 ML 999 ML IV (07:05)
[2024-09-12 07:07] LABS: Basophils % 0.5 %; Eosinophils % 0.2 %; Hematocrit 36.6 % (36-47); Lymphocytes # 0.4 10^3/uL (0.8-4.8); Mean Corpuscular HGB Conc 33.6 g/dL (30-55); Mean Corpuscular Hemoglobin 30.7 pg (27-33); Mean Corpuscular Volume 91.3 fl (85-98); Mean Platelet Volume 9.3 fL (7.4-10.4); Monocytes # 0.5 10^3/uL (0.2-0.9); Neutrophils # 3.51 10^3/uL (1.8-7.7); Neutrophils % 80.3 %; Nucleated Red Blood Cells % 0 %; Platelet Count 152 10^3/cmm (157-399); Red Blood Count 4.01 10^6/uL (3.85-5.65); Red Cell Distribution Width 12.2 % (12.1-15.1); White Blood Count 4.37 10^3/uL (3.29-11.43)
[2024-09-12 07:26] LABS: Alanine Aminotransferase 14 U/L (0-33); Alkaline Phosphatase 70 U/L (35-105); Anion Gap 12.6 (5-19); Aspartate Amino Transferase 23 U/L (0-32); Blood Urea Nitrogen 10 mg/dL (8-23); Calcium 8.3 mg/dL (8.5-10.5); Carbon Dioxide 27 mmol/L (22-29); Chloride 101 mmol/L (98-107); Creatinine Clr Calc Pharmacy 58.0696; Globulin 2.7 g/dL (1.3-4.6); Glucose 126 mg/dL (65-115); Osmolality Calculated 285 mOsm/kg (285-295); Potassium 3.6 mmol/L (3.5-5.1); Sodium 137 mmol/L (136-145); Total Protein 6.7 g/dL (6.6-8.7)
[2024-09-12] MEDS: dexamethasone 10 mg/mL INJ IVP (07:41)
[2024-09-12 07:49] LABS: Bilirubin Urine Negative (Negative); Blood Urine Trace (Negative); Glucose Urine UA Negative (Normal); Ketones Urine Negative (Negative); Leukocyte Esterase Urine Negative (Negative); Nitrate Urine Negative (Negative); Protein Urine Negative (Negative); Specific Gravity, Urine 1.012 (1.005-1.030); Urine Appearance Clear (CLEAR); Urine Color Yellow (Yellow); Urobilinogen Urine 0.2 mg/dL (Negative); pH Urine 8.5 (5-7)
[2024-09-12 07:54] LABS: Influenza A NEGATIVE (Negative); Influenza B NEGATIVE (Negative); Respiratory Syncytial Virus Ce NEGATIVE (Negative)
[2024-09-12 08:16] LABS: UA Manual Slide Review YES; UA Slide Review UA Slide Review Perf
[2024-09-12 08:17] LABS: Covid PCR Positive (Negative)
[2024-09-12 08:18] LABS: Add Urine Microscopic? YES; Amorphous Sediment Urine TRACE /hpf; RBC Urine RARE /hpf (0-2); Squamous Epithelial Cell Urine 0-4 /hpf (0-5)
[2024-09-12 08:19] LABS: Add Urine Culture? No
[2024-09-12 08:27] VITALS: BP 118/78; PULSE 87; O2SAT 98
[2024-09-12 08:29] VITALS: BP 118/78; PULSE 87; O2SAT 98
== END 2024-09-12 08:45 | disposition home or self-care (01) ==
PROVIDERS: Emergency Provider Emergency Medicine; PCP Family Medicine
DX: U07.1 COVID-19 (principal); Z11.52 Encounter for screening for COVID-19
CPT/HCPCS: 0241U; 71045; 80053; 81001; 85025; 96374; 99284; J1100; J2405; J7030

== ENCOUNTER 2024-10-29 14:14 | Outpatient (CLI) | payer MEDICARE, SELFPAY ==
--- NOTE | 2024-10-29 14:16 | MM_ITS ---
WS: [email or web address] BILATERAL 3D TOMOSYNTHESIS DIGITAL SCREENING MAMMOGRAPHY WITH CAD CLINICAL INFORMATION: SCREENING HISTORY: Screening mammogram. No current complaints. COMPARISON: 2022 TECHNIQUE: Bilateral CC and MLO views. FINDINGS: The breasts are composed of heterogeneous fibroglandular density tissue, which can limit the detectio n of small underlying mass lesions. No suspicious mass, asymmetry, calcifications, or architectural d istortion. No evidence of malignancy. Incidental punctate and lucent centered calcifications. MM/MM [facility] tomosynthesis [id number] IMPRESSION: DENSITY: The breasts are heterogeneously dense, which may obscure small masses. BI-RADS: 2 - Benign FOLLOW UP: 1 Year Follow-up Recommend return to annual screening mammography.
== END 2024-10-29 14:15 | disposition home or self-care (01) ==
LOC: RAD 14:15
PROVIDERS: PCP Family Medicine; Visit Provider Family Medicine
DX: Z12.31 Encounter for screening mammogram for malignant neoplasm of breast (principal); R92.333 Mammographic heterogeneous density, bilateral breasts; R92.1 Mammographic calcification found on diagnostic imaging of breast
CPT/HCPCS: 77063; 77067

== ENCOUNTER 2025-11-03 12:38 | Outpatient (CLI) | payer MEDICARE, SELFPAY ==
--- NOTE | 2025-11-03 12:45 | MM_ITS ---
WS: [email or web address] BILATERAL 3D TOMOSYNTHESIS DIGITAL SCREENING MAMMOGRAPHY WITH CAD CLINICAL INFORMATION: SCREENING MAMMOGRAM HISTORY: Screening mammogram. No current complaints. COMPARISON: 2023 TECHNIQUE: Bilateral CC and MLO views. FINDINGS: The breasts are composed of heterogeneous fibroglandular density tissue, which can limit the detection of small underlying mass lesions. No suspicious mass, asymmetry, calcifications, or architectural distortion. No evidence of malignancy. Punctate and lucent centered calcifications. Stable nodular den sities RIGHT breast MM/MM scr tomosynthesis [id number] IMPRESSION: DENSITY: The breasts are heterogeneously dense, which may obscure small masses. BI-RADS: 2 - Benign FOLLOW UP: 1 Year Follow-up Recommend return to annual screening mammography.
--- NOTE | 2025-11-03 13:30 | XR_ITS ---
WS: [email or web address] DEXA (DUAL ENERGY X-RAY ABSORPTIOMETRY) Bone mineral density was performed using a [employer] machine. HISTORY: Z78.0 - Asymptomatic menopausal state COMPARISON: 10/26/2023 Lumbar spine BMD (L1-L4): 1.250 g/cm2 T score: 0.6 Z score: 2.7 Total hip BMD: Left: 0.907 g/cm2. T score: -0.8 Z score: 1.2 Right: 0.887 g/cm2. T score: -1.0 Z score: 1.0 10 year probability of a major osteoporotic fracture is 10.8%. Compared to the prior study from 08/26/2023. Lumbar spine bone mineral density has increased by 0.6%. Bilateral hips bone mineral density has decreased by 2.1%. XR/XR DEXA axial skeleton* 14937 IMPRESSION: NORMAL BONE MINERAL DENSITY based upon the WHO classification for females. Significant decrease in bone mineral density within the hips since the prior . No significant change of bone mineral density in the lumbar spine.
== END 2025-11-03 12:39 | disposition home or self-care (01) ==
LOC: RAD 12:41
PROVIDERS: PCP Family Medicine; Visit Provider Nurse Practitioner Women's Health
DX: Z12.31 Encounter for screening mammogram for malignant neoplasm of breast (principal); Z13.820 Encounter for screening for osteoporosis; Z78.0 Asymptomatic menopausal state; R92.333 Mammographic heterogeneous density, bilateral breasts; R92.323 Mammographic fibroglandular density, bilateral breasts; R92.1 Mammographic calcification found on diagnostic imaging of breast; N60.01 Solitary cyst of right breast
CPT/HCPCS: 77063; 77067; 77080